=== PATIENT | male | born 1960 | race Caucasian/White ===

== ENCOUNTER 2023-02-14 20:05 | Emergency (ER) | payer BC | END 2023-02-14 21:10 | disposition home or self-care (01) | LOC: KA.ED 20:05 → SUPCPDRO 20:05 → KA.ED 21:10 | DX: S82.54XA Nondisplaced fracture of medial malleolus of right tibia, initial encounter for closed fracture (principal); F17.210 Nicotine dependence, cigarettes, uncomplicated; X50.1XXA Overexertion from prolonged static or awkward postures, initial encounter | CPT/HCPCS: 73610-RT; 99283 ==